=== PATIENT | male | born 1945 | race Asian ===

== ENCOUNTER 2019-03-19 14:02 | Emergency (ER) | payer SELFPAY ==
[~2019-03-19] VITALS: Ht 170.2 cm; Wt 81.8 kg
[2019-03-19] MEDS ORDERED: HYDROCODONE/ACETAMINOPHEN 5-325 MG TABLET PO ONE (15:45)
[2019-03-19] MEDS ORDERED: KETOROLAC TROMETHAMINE 30 MG/ML VIAL IM ONE (15:45)
[2019-03-19 16:34] LABS: APPEARANCE,URINE CLEAR (CLEAR); BILIRUBIN,URINE NEGATIVE (NEGATIVE); GLUCOSE, URINE (UA) NEGATIVE (NEGATIVE); KETONES,URINE NEGATIVE (NEGATIVE); LEUKOCYTE ESTERASE ,URINE NEGATIVE (NEGATIVE); NITRATE,URINE NEGATIVE (NEGATIVE); OCCULT BLOOD,URINE NEGATIVE (NEGATIVE); PH,URINE 5.5 (5.0-8.0); PROTEIN,URINE POS 1+ (NEGATIVE)
[2019-03-19 16:37] LABS: BASOPHILS % (AUTO) 0.2 % (0.0-2.0); EOSINOPHILS % (AUTO) 1.5 % (1.0-6.0); HEMATOCRIT 39.6 % (41-53); HEMOGLOBIN 12.2 g/dL (13.5-17.5); LYMPHOCYTES # (AUTO) 1.8 K/uL (1.0-4.8); LYMPHOCYTES % (AUTO) 14.3 % (22.0-44.0); MEAN CORPUSCULAR HEMOGLOBIN 21.6 pg (26.0-34.0); MEAN CORPUSCULAR HGB CONC 30.8 G/dL (31.0-37.0); MEAN CORPUSCULAR VOLUME 70 fL (80-100); MONOCYTES # (AUTO) 1.2 K/uL (0.1-1.0); MONOCYTES % (AUTO) 9.2 % (2.0-9.0); NEUTROPHILS # (AUTO) 9.7 K/uL (1.8-7.7); NEUTROPHILS % (AUTO) 74.8 % (40.0-70.0); PLATELET COUNT (AUTO) 238 K/uL (150-450); RED BLOOD CELL COUNT(AUTO) 5.64 MIL/uL (4.50-5.90)
[2019-03-19 16:44] LABS: RBC,URINE 0-2 /HPF (0-2); WBC,URINE 0-2 /HPF (0-5)
[2019-03-19 16:45] LABS: BACTERIA,URINE None Seen /HPF (None Seen); SQUAMOUS EPITHELIAL CELL,UR Rare /LPF (None Seen)
[2019-03-19 16:55] LABS: ANION GAP 8 mmol/L (8-16); CALCIUM, TOTAL 8.9 mg/dL (8.8-10.5); CARBON DIOXIDE 26 mmol/L (22-29); CHLORIDE 93 mmol/L (98-107); CREATININE 1.08 mg/dL (0.60-1.30); GLUCOSE,RANDOM 141 mg/dL (70-110); POTASSIUM 4.3 mmol/L (3.5-5.1); SODIUM SERUM 127 mmol/L (136-145); UREA NITROGEN, BLOOD 18 mg/dL (7-18)
[2019-03-19 16:57] LABS: GLOMERULAR FILTR. RATE CALC > 60 mL/min (>60)
[2019-03-19 17:03] LABS: ALANINE AMINOTRANSFERASE 30 U/L (12-78); ALBUMIN 3.1 g/dL (3.4-5.0); ALKALINE PHOSPHATASE 82 U/L (46-116); ASPARTATE AMINOTRANSFERASE 24 U/L (15-37); BILIRUBIN,TOTAL 0.5 mg/dL (0.1-1.0); LIPASE 132 U/L (73-393); TOTAL PROTEIN, SERUM 7.3 g/dL (6.4-8.2)
[2019-03-19] MEDS ORDERED: ONDANSETRON HCL 4 MG/2 ML VIAL IVP ONE (17:15)
[2019-03-19] MEDS ORDERED: SODIUM CHLORIDE 0.9% 1,000 ML IV ONE (17:15)
[2019-03-19 19:14] VITALS: BP 149/84
== END 2019-03-19 20:14 | disposition home or self-care (01) ==
LOC: EMS 14:04
DX: M54.5 Low back pain (principal); R42 Dizziness and giddiness; R11.2 Nausea with vomiting, unspecified; E11.9 Type 2 diabetes mellitus without complications; E78.00 Pure hypercholesterolemia, unspecified
CPT/HCPCS: 36415; 72170; 80053; 81001; 82962; 83690; 84484; 85025; 93005; 96361; 96372; 96374; 99284; G0480; J1885; J2405; J7030